=== PATIENT | male | born 1955 | race Caucasian/White ===

== ENCOUNTER 2016-11-09 15:31 | Emergency (ER) | payer SELFPAY ==
--- NOTE | 2016-11-09 17:38 | ED ---
General Adult HPI <Yury Mcknight - Last Filed: 11/09/16 20:24> - General Source: patient, RN notes reviewed Mode of arrival: wheelchair Limitations: no limitations <Kyra Moreno - Last Filed: 11/09/16 20:36> - General Chief complaint: Wound/Laceration Stated complaint: Infection Right Leg Time Seen by Provider: 11/09/16 17:04 - History of Present Illness Initial comments: This is a 61-year-old male who presents with an ulcer to the right second toe. Patient states this has been going on for about 2 weeks. Patient states he is a diabetic and has problems like this in the wintertime when the weather is very cold. Patient denies any injury or trauma to the right foot. She denies any numbness/weakness or tingling to the right foot. Patient denies any fever/ chills. Patient states he recently found out that his kidney function is decreasing. Patient states he went to the "free clinic" for the right foot and was told to come to the for evaluation today. Patient denies any recent fever, chills, shortness breath, chest pain, abdominal pain, nausea/vomiting/ diarrhea, back pain, hematuria, headache, or visual changes, or any other complaints. (Kyra Moreno) - Related Data Home Medications Medication Instructions Recorded Confirmed Cholecalciferol [Vitamin D3] 5,000 unit PO DAILY 11/09/16 11/09/16 Gabapentin [Neurontin] 200 mg PO BID 11/09/16 11/09/16 Garlic 1 tab PO DAILY 11/09/16 11/09/16 Lisinopril [Zestril] 20 mg PO HS 11/09/16 11/09/16 Multivitamins, Thera [Multivitamin] 1 tab PO DAILY 11/09/16 11/09/16 Doyle-3 Fatty Acids/Fish Oil [Fish 1 cap PO DAILY 11/09/16 11/09/16 Oil 1,000 mg Softgel] Ranitidine HCl [Zantac] 150 mg PO BID 11/09/16 11/09/16 metFORMIN HCL 1,000 mg PO BID 11/09/16 11/09/16 Previous Rx's Medication Instructions Recorded Cephalexin [Keflex] 500 mg PO Q12HR 7 Days 11/09/16 Mupirocin 2% Oint [Bactroban 2% 1 applic TOPICAL TID 10 Days 11/09/16 Oint] Allergies Allergy/AdvReac Type Severity Reaction Status Date / Time bee pollen Allergy Anaphylaxis Verified 11/09/16 17:04 Review of Systems ROS Other: All systems not noted in ROS Statement are negative. <Yury Mcknight - Last Filed: 11/09/16 20:24> ROS Other: All systems not noted in ROS Statement are negative. <Fortino Morenosaundra Paul - Last Filed: 11/09/16 20:36> ROS Statement: Those systems with pertinent positive or pertinent negative responses have been documented in the HPI. Past Medical History Past Medical History: Diabetes Mellitus, Hypertension, Osteoarthritis (OA) History of Any Multi-Drug Resistant Organisms: None Reported Past Surgical History: Appendectomy, Hernia Repair, Tonsillectomy Past Psychological History: No Psychological Hx Reported Smoking Status: Never smoker Past Alcohol Use History: None Reported Past Drug Use History: None Reported <Kyra Moreno - Last Filed: 11/09/16 20:36> General Exam <Yury Mcknight - Last Filed: 11/09/16 20:24> Limitations: no limitations <Fortino Morenosaundra Paul - Last Filed: 11/09/16 20:36> - General Exam Comments Initial Comments: General: The patient is awake and alert, in no distress, and does not appear acutely ill. Neck: The neck is supple, there is no tenderness or JVD. Cardiovascular: There is a regular rate and rhythm. No murmur, rub or gallop is appreciated. Respiratory: Lungs are clear to auscultation, respirations are non-labored, breath sounds are equal. No wheezes, stridor, rales, or rhonchi. Musculoskeletal: There is tenderness to the second digit of the right foot. There is a superficial abrasion to the plantar aspect of the second digit's distal phalanx of the right foot. Normal ROM. Strength 5/5. Sensation intact. Posterior tibial pulses equal bilaterally 2+. Capillary refill normal at less than 2 seconds. Neurological: A&O x 3. CN II-XII intact, There are no obvious motor or sensory deficits. Coordination appears grossly intact. Speech is normal. Skin: There is an abrasion to the plantar aspect of the second digit's distal phalanx of the right foot. There is erythema to the medial aspect of the right great toe lateral aspect of the third digit of the right foot. Skin is warm and dry and no rashes are noted. Psychiatric: Cooperative, appropriate mood & affect, normal judgment. (Kyra Moreno) Medical Decision Making - Lab Data Result diagrams: 11/09/16 18:38 11/09/16 18:38 <Yury Mcknight - Last Filed: 11/09/16 20:24> - Lab Data Result diagrams: 11/09/16 18:38 11/09/16 18:38 <Kyra Moreno - Last Filed: 11/09/16 20:36> - Medical Decision Making I examined the patient he has 2 small scabs on his second and third toes right foot. The patient will be referred onto the wound clinic. He does have diabetes. Kidney numbers are within normal limits and the patient was thinking he would been told he has kidney failure. BUN/creatinine GFR all within normal limits. Afebrile. Patient be placed on Bactroban and oral Keflex. Told to change his socks frequently. Keep leg elevated Dr. Mcknight (Yury Mcknight) This is a 61-year-old male diabetic foot ulcer. On physical exam There is an abrasion to the plantar aspect of the second digit's distal phalanx of the right foot. There is erythema to the medial aspect of the right great toe lateral aspect of the third digit of the right foot. Skin is warm and dry and no rashes are noted. An x-ray of the right foot was done and reviewed showing: Degenerative hypertrophic changes. No fracture. No evidence of osteomyelitis. Reported by Dr. Dumont. Basic labs were drawn and reviewed. The cultures are pending. The wound was cleansed with normal saline. A wound culture was obtained and is pending. I discussed the case with attending physician, Dr. Mcknight who Also examined the patient. At this time patient will be sent home with Bactroban and oral Keflex. Discussed that patient should closely follow up with the wound care clinic. Patient will be given a referral to wound care clinic today.I discussed return parameters. Discussed that patient should follow up with PCP in one to 2 days or return to the [facility] for any worsening symptoms or for any further concerns. . Patient was receptive to this plan and patient will be discharged home. I discussed his case with attending physician Dr. Mcknight who agrees the plan as stated above. (Kyra Moreno) - Lab Data Lab Results 11/09/16 11/09/16 Range/Units 18:38 18:38 WBC 8.8 (3.8-10.6) k/uL RBC 4.45 (4.30-5.90) m/uL Hgb 13.3 (13.0-17.5) gm/dL Hct 39.9 (39.0-53.0) % MCV 89.6 (80.0-100.0) fL MCH 29.8 (25.0-35.0) pg MCHC 33.2 (31.0-37.0) g/dL RDW 12.9 (11.5-15.5) % Plt Count 191 (150-450) k/uL Neutrophils % 74 % Lymphocytes % 18 % Monocytes % 5 % Eosinophils % 1 % Basophils % 0 % Neutrophils # 6.5 (1.3-7.7) k/uL Lymphocytes # 1.6 (1.0-4.8) k/uL Monocytes # 0.4 (0-1.0) k/uL Eosinophils # 0.1 (0-0.7) k/uL Basophils # 0.0 (0-0.2) k/uL Sodium 139 (137-145) mmol/L Potassium 4.4 (3.5-5.1) mmol/L Chloride 101 (98-107) mmol/L Carbon Dioxide 26 (22-30) mmol/L Anion Gap 12 mmol/L BUN 17 (9-20) mg/dL Creatinine 0.90 (0.66-1.25) mg/dL Est GFR (MDRD) Af Amer >60 (>60 ml/min/1.73 sqM) Est GFR (MDRD) Non-Af >60 (>60 ml/min/1.73 sqM) Glucose 168 H (74-99) mg/dL Calcium 9.3 (8.4-10.2) mg/dL Total Bilirubin 0.6 (0.2-1.3) mg/dL AST 24 (17-59) U/L ALT 38 (21-72) U/L Alkaline Phosphatase 45 (38-126) U/L Total Protein 7.3 (6.3-8.2) g/dL Albumin 4.5 (3.5-5.0) g/dL Disposition <Yury Mcknight - Last Filed: 11/09/16 20:24> Time of Disposition: 20:33 <Kyra Moreno - Last Filed: 11/09/16 20:36> Clinical Impression: Abrasion foot/toe, History of diabetes mellitus Disposition: HOME SELF-CARE Condition: Good Instructions: Abrasion (ED) Additional Instructions: Please finish the entire course of antibiotics. Please use topical Bactroban as prescribed. Please follow-up with the wound care clinic. Please follow-up with family doctor in the next 2 days of symptoms have not improved. Please return to emergency room if the symptoms increase or worsen or for any other concerns. Prescriptions: Cephalexin [Keflex] 500 mg PO Q12HR 7 Days Mupirocin 2% Oint [Bactroban 2% Oint] 1 applic TOPICAL TID 10 Days
--- NOTE | 2016-11-09 18:02 | XR ---
EXAMINATION TYPE: XR foot complete RT DATE OF EXAM: 11/09/2016 5:45 PM COMPARISON: NONE HISTORY: Second toe ulcer TECHNIQUE: 3 views FINDINGS: I see no fracture nor dislocation. Second toe is intact. I see no focal bone destruction. T here is a plantar calcaneal spur. There is spurring at the intertarsal joints. IMPRESSION: Degenerative hypertrophic changes. No fracture. No evidence of osteomyelitis.
[2016-11-09 19:04] LABS: Basophils % (A) 0 %; CH 30.6; CHCM 34.3; Eosinophils # (A) 0.1 k/uL (0-0.7); Eosinophils % (A) 1 %; HCT 39.9 % (39.0-53.0); HDW 2.61; HGB 13.3 gm/dL (13.0-17.5); Luc # (Auto) 0.17; Luc % (Auto) 2; Lymphocytes # (A) 1.6 k/uL (1.0-4.8); Lymphocytes % (A) 18 %; MCH 29.8 pg (25.0-35.0); MCHC 33.2 g/dL (31.0-37.0); MCV 89.6 fL (80.0-100.0); Monocytes # (A) 0.4 k/uL (0-1.0); Monocytes % (A) 5 %; Neutrophils # (A) 6.5 k/uL (1.3-7.7); Neutrophils % (A) 74 %; RBC 4.45 m/uL (4.30-5.90); RDW 12.9 % (11.5-15.5); WBC 8.8 k/uL (3.8-10.6); WBC (Perox) 9.22
[2016-11-09 19:06] VITALS: TEMP 98.1
[2016-11-09 19:18] LABS: ALT 38 U/L (21-72); AST 24 U/L (17-59); Alkaline Phosphatase 45 U/L (38-126); Anion Gap 12 mmol/L; Blood Urea Nitrogen 17 mg/dL (9-20); Calcium 9.3 mg/dL (8.4-10.2); Carbon Dioxide 26 mmol/L (22-30); Chloride 101 mmol/L (98-107); Glucose 168 mg/dL (74-99); Non-African American GFR(MDRD) >60 (>60 ml/min/1.73 sqM); Potassium 4.4 mmol/L (3.5-5.1); Sodium 139 mmol/L (137-145); Total Bilirubin 0.6 mg/dL (0.2-1.3); Total Protein 7.3 g/dL (6.3-8.2)
[2016-11-09 21:57] VITALS: BP 157/78; PULSE 79; RESP 18
== END 2016-11-09 21:10 | disposition home or self-care (01) ==
LOC: EC 15:31
DX: S90.414A Abrasion, right lesser toe(s), initial encounter (principal); E11.9 Type 2 diabetes mellitus without complications; Z79.899 Other long term (current) drug therapy; Z79.84 Long term (current) use of oral hypoglycemic drugs; Z91.048 Other nonmedicinal substance allergy status; I10 Essential (primary) hypertension; M19.90 Unspecified osteoarthritis, unspecified site
CPT/HCPCS: 36415; 80053; 85025; 87040; 87070; 87205; 99283